=== PATIENT | male | born 1950 | race Caucasian/White ===

== ENCOUNTER 2024-04-06 15:35 | Inpatient (IN) | payer OTHER ==
[~2024-04-06] VITALS: Ht 162.6 cm; Wt 79.8 kg
[2024-04-06 16:53] LABS: BASOPHILS % 0.2 % (0.0-2.0); EOSINOPHILS % 0.7 % (0.0-5.0); HEMATOCRIT. 39.7 % (42.0-52.0); HEMOGLOBIN. 13.3 g/dL (14.0-18.0); LYMPHOCYTES % 9.1 % (20.0-50.0); MEAN CORPUSCULAR HEMOGLOBIN 31.2 pg (28.0-32.0); MEAN CORPUSCULAR HGB CONC 33.5 g/dL (31.0-37.0); MEAN CORPUSCULAR VOLUME 93.2 fL (80.0-94.0); MEAN PLATELET VOLUME 7.6 fl (7.4-10.4); MONOCYTES % 6.8 % (2.0-8.0); NEUTROPHILS % 83.2 % (40.0-76.0); PLATELET 218 x1000/uL (130-400); RED BLOOD CELL COUNT 4.26 mill/uL (4.7-6.1); RED CELL DISTRIBUTION WIDTH 13.6 % (11.6-14.6); WHITE BLOOD COUNT 10.7 x1000/uL (4.5-11.0)
[2024-04-06 17:02] LABS: CARBON DIOXIDE 26 mEq/L (21-32); CHLORIDE 109 mEq/L (98-107); POTASSIUM 4.3 mEq/L (3.5-5.1); SODIUM 139 mEq/L (136-145)
[2024-04-06 17:03] LABS: CALCIUM 8.6 mg/dL (8.7-10.4)
[2024-04-06 17:07] LABS: CREATININE 1.5 mg/dL (0.6-1.3)
[2024-04-06 17:08] LABS: GLUCOSE 74 mg/dL (70-105); TROPONIN I HIGH SENSITIVITY 17 ng/L (3.0-53); UREA NITROGEN BLOOD 24 mg/dL (9-23)
[2024-04-06 17:09] LABS: ALANINE AMINOTRANSFERASE 24 IU/L (10-49); ALBUMIN 3.6 g/dL (3.2-4.8); ASPARTATE AMINOTRANSFERASE 20 IU/L (<34)
[2024-04-06 17:10] LABS: BILIRUBIN TOTAL 0.4 mg/dL (0.1-1.0)
[2024-04-06] MEDS ORDERED: ONDANSETRON HCL 4MG/2ML INJ IV PRN (19:45)
[2024-04-06] MEDS ORDERED: ACETAMINOPHEN 325MG TABLET PO PRN (19:45)
[2024-04-06] MEDS ORDERED: IPRATROPIUM/ALBUTEROL 0.5-3(2.5)MG/3ML NEB HHN PRN (19:45)
[2024-04-06] MEDS ORDERED: DIPHENHYDRAMINE 50MG/ML VIAL IV PRN (19:45)
[2024-04-06] MEDS: SODIUM CHLORIDE 0.9% 1,000 ML IV SCH (20:51)
[2024-04-07 05:46] LABS: BASOPHILS % 0.3 % (0.0-2.0); HEMOGLOBIN. 13.8 g/dL (14.0-18.0); LYMPHOCYTES % 15.1 % (20.0-50.0); MEAN CORPUSCULAR HEMOGLOBIN 31.4 pg (28.0-32.0); MEAN CORPUSCULAR HGB CONC 33.6 g/dL (31.0-37.0); MEAN CORPUSCULAR VOLUME 93.3 fL (80.0-94.0); MEAN PLATELET VOLUME 8.1 fl (7.4-10.4); MONOCYTES % 7.9 % (2.0-8.0); NEUTROPHILS % 75.7 % (40.0-76.0); PLATELET 215 x1000/uL (130-400); RED BLOOD CELL COUNT 4.39 mill/uL (4.7-6.1); RED CELL DISTRIBUTION WIDTH 13.6 % (11.6-14.6); WHITE BLOOD COUNT 9.4 x1000/uL (4.5-11.0)
[2024-04-07 05:50] LABS: POTASSIUM 4.1 mEq/L (3.5-5.1)
[2024-04-07 05:52] LABS: CALCIUM 8.4 mg/dL (8.7-10.4)
[2024-04-07 05:56] LABS: CREATININE 1.2 mg/dL (0.6-1.3)
[2024-04-07 12:00] VITALS: BP 182/76; PULSE 81; RESP 18; TEMP 97.7
[2024-04-07] MEDS: CLONIDINE 0.1MG TABLET PO PRN (12:12)
[2024-04-07 12:26] VITALS: BP 173/74; PULSE 84; RESP 17; TEMP 98.1
[2024-04-07 14:57] VITALS: BP 160/63
[2024-04-07] MEDS: AMLODIPINE 2.5MG TABLET PO SCH (14:57)
[2024-04-07 16:00] VITALS: BP 149/61; PULSE 74; RESP 18; TEMP 97.8
[2024-04-07] MEDS ORDERED: CLOP-31 PO (16:09)
[2024-04-07] MEDS ORDERED: ESCI5TAB16 PO (16:09)
[2024-04-07] MEDS ORDERED: SPIR25TA6 PO (16:09)
[2024-04-07] MEDS ORDERED: TAMS-11 PO (16:09)
[2024-04-07] MEDS ORDERED: LISI10TA26 PO (16:09)
[2024-04-07] MEDS ORDERED: LIP40 PO (16:09)
[2024-04-07] MEDS: CLOPIDOGREL 75MG TABLET PO SCH (17:35)
[2024-04-07] MEDS: LISINOPRIL 10MG TABLET PO SCH (17:35)
[2024-04-07] MEDS: CITALOPRAM HYDROBROMIDE 10MG TABLET PO SCH (17:35)
[2024-04-07 19:21] VITALS: BP 156/80; PULSE 82; TEMP 99.3; O2SAT 98
[2024-04-07] MEDS ORDERED: SPIRONOLACTONE 25MG TABLET PO SCH (21:00)
[2024-04-07] MEDS ORDERED: ATORVASTATIN CALCIUM 40MG TABLET PO SCH (21:00)
[2024-04-08] MEDS ORDERED: TAMSULOSIN HCL 0.4MG SR CAPSULE PO SCH (09:00)
== END 2024-04-07 20:20 | disposition short-term general hospital (02) | DRG 312 ==
LOC: ER 15:35 → EDBEDREQTM 19:06 → EDBEDREQ 19:06 → 8WST 04-07 11:00
PROVIDERS: ADMIT Internal Medicine; ATTEND Internal Medicine
DX: R55 Syncope and collapse (principal); N17.9 Acute kidney failure, unspecified; E11.9 Type 2 diabetes mellitus without complications; E83.51 Hypocalcemia; I11.9 Hypertensive heart disease without heart failure; Z86.73 Personal history of transient ischemic attack (TIA), and cerebral infarction without residual deficits
CPT/HCPCS: 36415; 71045; 80048; 80053; 83880; 84145; 84484; 85025; 85379; 93970; 99285